=== PATIENT | female | born 1950 | race Caucasian/White ===

== ENCOUNTER → 2016-12-05 | Outpatient (CLI) | payer MEDICARE, MEDICAID ==
[~2016-12-05] MED LIST: ASPI-986 PO; BACITRACIN 50,000 UNITS/VIAL ONE; BUPIVACAINE HCL/PF 0.5% (5MG/ML) 10ML ONE; GENTAMICIN SULF 40MG/ML 2ML VIAL ONE; LIDOCAINE HCL 1% 20ML VIAL (Pyxis) INJ ONE; METO-411 PO; NORMAL SALINE 0.9% 10 ML SYR ONE; NOVALIN N; TRIAMCINOLONE ACETONIDE 40MG/ML 1ML VIAL ONE; VALS320T13 PO; VITA1CAP64 PO
== END | disposition home or self-care (01) ==
LOC: CT 08:47
PROVIDERS: ATTEND Specialist
DX: N28.89 Other specified disorders of kidney and ureter (principal); K80.20 Calculus of gallbladder without cholecystitis without obstruction; K57.90 Diverticulosis of intestine, part unspecified, without perforation or abscess without bleeding
CPT/HCPCS: 74176; A4216; J1580; J3301; J3490

== ENCOUNTER → 2017-01-16 | Outpatient (CLI) | payer MEDICARE, MEDICAID ==
[~2017-01-16] MED LIST changes: -BACITRACIN 50,000 UNITS/VIAL ONE; -BUPIVACAINE HCL/PF 0.5% (5MG/ML) 10ML ONE; -GENTAMICIN SULF 40MG/ML 2ML VIAL ONE; -LIDOCAINE HCL 1% 20ML VIAL (Pyxis) INJ ONE; -NORMAL SALINE 0.9% 10 ML SYR ONE; -TRIAMCINOLONE ACETONIDE 40MG/ML 1ML VIAL ONE
== END | disposition home or self-care (01) ==
LOC: RAD 13:01
PROVIDERS: ATTEND Internal Medicine Nephrology
DX: R06.02 Shortness of breath (principal)
CPT/HCPCS: 71010

== ENCOUNTER 2018-02-25 18:46 | Emergency (ER) | payer MEDICARE, MEDICAID ==
[~2018-02-25] VITALS: Ht 162.6 cm; Wt 70.0 kg
[~2018-02-25 18:46] MED LIST changes: +ALBU18HF2 IH; +ALBU90AE INH; +AMLO10TA80 PO; +ASPI-1159 PO; -ASPI-986 PO; +CHOL200077 PO; +CLOB60CR4 TP; +FOLI0.8T23 MT; +FOLI0.8T23 PO; +INSNPH SUBCUT; +LIDO700A30 TP; -METO-411 PO; +METO100T16 PO; +NEPVIT PO; -NOVALIN N; +PRAV80TA21 PO; +SEVE800T8 PO; -VALS320T13 PO; +VALS320T2 PO; -VITA1CAP64 PO
[2018-02-25] MEDS ORDERED: BACITRACIN ZINC OINT UDPKT TOP ONE (19:45)
[2018-02-25] MEDS ORDERED: IBUPROFEN 800MG TABLET PO ONE (19:45)
[2018-02-25] MEDS ORDERED: HYDROCODONE/ACETAMINOPHEN 5/325MG TABLET PO ONE (19:45)
[2018-02-26 02:05] VITALS: BP 120/62
== END 2018-02-26 02:13 | disposition home or self-care (01) ==
LOC: ER 19:03
DX: S00.81XA Abrasion of other part of head, initial encounter (principal); S50.01XA Contusion of right elbow, initial encounter; E11.22 Type 2 diabetes mellitus with diabetic chronic kidney disease; I12.0 Hypertensive chronic kidney disease with stage 5 chronic kidney disease or end stage renal disease; N18.6 End stage renal disease; E78.00 Pure hypercholesterolemia, unspecified; Z99.2 Dependence on renal dialysis; Z79.82 Long term (current) use of aspirin; W01.0XXA Fall on same level from slipping, tripping and stumbling without subsequent striking against object, initial encounter; Y93.89 Activity, other specified; Y92.018 Other place in single-family (private) house as the place of occurrence of the external cause
CPT/HCPCS: 71045; 99284

== ENCOUNTER → 2018-05-29 | Outpatient (CLI) | payer MEDICARE, MEDICAID | END | disposition home or self-care (01) | LOC: CT 11:40 | PROVIDERS: ATTEND Internal Medicine Nephrology | DX: I67.82 Cerebral ischemia (principal); G31.9 Degenerative disease of nervous system, unspecified; R90.82 White matter disease, unspecified; M25.521 Pain in right elbow | CPT/HCPCS: 73080 ==

== ENCOUNTER 2018-11-30 02:57 | Inpatient (IN) | payer MEDICARE, OTHER ==
[~2018-11-30] VITALS: Ht 147.3 cm; Wt 73.5 kg
[~2018-11-30 02:57] MED LIST changes: -ASPI-1159 PO; +ASPI-1393 PO
[2018-11-30] MEDS ORDERED: NITROGLYCERIN OINT 1GM/INCH UDPKT TD ONE (03:30)
[2018-11-30] MEDS ORDERED: HYDRALAZINE 20MG/ML VIAL IV ONE (03:30)
[2018-11-30 03:52] LABS: BASOPHILS % 2.3 % (0.0-2.0); LYMPHOCYTES % 17.6 % (20.0-50.0); MEAN CORPUSCULAR HEMOGLOBIN 31.3 pg (28.0-32.0); MEAN CORPUSCULAR VOLUME 91.8 fL (81.0-99.0); MEAN PLATELET VOLUME 8.4 fl (7.4-10.4); MONOCYTES % 5.5 % (2.0-8.0); NEUTROPHILS % 67.6 % (40.0-76.0); PLATELET 148 x1000/uL (130-400); RED CELL DISTRIBUTION WIDTH 15.4 % (11.6-14.6)
[2018-11-30 03:59] LABS: CHLORIDE 105 mEq/L (98-107); HEMATOCRIT. 20.2 % (36.0-48.0); HEMOGLOBIN. 6.9 g/dL (12.0-16.0)
[2018-11-30] MEDS ORDERED: ONDANSETRON HCL 4MG/2ML INJ IV PRN (08:30)
[2018-11-30] MEDS ORDERED: HYDROCODONE/ACETAMINOPHEN 5/325MG TABLET PO PRN (08:30)
[2018-11-30] MEDS ORDERED: MORPHINE SULFATE 2 MG/ML CPJ (NOT FOR IM USE) IV PRN (08:30)
[2018-11-30] MEDS ORDERED: MAGNESIUM/ALUMINUM HYDROXIDE/SIMETHICONE 30ML UDC PO PRN (08:30)
[2018-11-30] MEDS ORDERED: CLONIDINE 0.1MG TABLET PO PRN (08:30)
[2018-11-30] MEDS ORDERED: LORAZEPAM 2MG/ML CPJ IV PRN (08:30)
[2018-11-30] MEDS ORDERED: NA PHOS,M-B/NA PHOS,DI-BA ENEMA 118ML PR PRN (08:30)
[2018-11-30] MEDS ORDERED: DOCUSATE SODIUM 100MG CAPSULE PO PRN (08:30)
[2018-11-30] MEDS ORDERED: DIPHENHYDRAMINE 50MG/ML VIAL IV PRN (08:30)
[2018-11-30] MEDS ORDERED: ACETAMINOPHEN 325MG TABLET PO PRN (08:30)
[2018-11-30] MEDS ORDERED: GUAIFENESIN 200MG/10ML SUGAR FREE UDC PO PRN (08:30)
[2018-11-30] MEDS ORDERED: IPRATROPIUM/ALBUTEROL 0.5-3(2.5)MG/3ML NEB INH PRN (08:30)
[2018-11-30 10:45] VITALS: BP 96/52
[2018-11-30 11:01] VITALS: BP 96/52
[2018-11-30] MEDS: ASPIRIN 81MG EC TABLET PO SCH (11:39)
[2018-11-30] MEDS ORDERED: PERMETHRIN 5% CREAM 60GM TOP NR (12:00)
[2018-11-30 12:07] VITALS: BP 102/68
[2018-11-30 16:29] VITALS: BP 155/78
[2018-11-30 16:54] LABS: CREATINE KINASE 63 IU/L (26-192)
[2018-11-30 16:55] LABS: CREATINE KINASE MB FRACTION < 1.0 ng/mL (0.5-3.6)
[2018-11-30] MEDS: IPRATROPIUM/ALBUTEROL 0.5-3(2.5)MG/3ML NEB HHN SCH (19:35)
[2018-11-30 20:17] VITALS: BP 145/55
[2018-11-30 23:43] LABS: CREATINE KINASE 59 IU/L (26-192)
[2018-11-30 23:44] LABS: CREATINE KINASE MB FRACTION < 1.0 ng/mL (0.5-3.6)
[2018-12-01 00:54] VITALS: BP 138/59
[2018-12-01] MEDS: IPRATROPIUM/ALBUTEROL 0.5-3(2.5)MG/3ML NEB HHN SCH ×4 (01:00→20:54)
[2018-12-01 04:00] VITALS: BP 172/64
[2018-12-01 06:51] LABS: CHLORIDE 103 mEq/L (98-107)
[2018-12-01 06:58] LABS: BASOPHILS % 1.7 % (0.0-2.0); EOSINOPHILS % 1.3 % (0.0-5.0); HEMATOCRIT. 25.8 % (36.0-48.0); LDL CHOLESTEROL 35 mg/dL (5-100); LYMPHOCYTES % 10.8 % (20.0-50.0); MEAN CORPUSCULAR VOLUME 89.4 fL (81.0-99.0); MEAN PLATELET VOLUME 8.7 fl (7.4-10.4); MONOCYTES % 5.7 % (2.0-8.0); NEUTROPHILS % 80.5 % (40.0-76.0); PLATELET 140 x1000/uL (130-400); RED BLOOD CELL COUNT 2.89 mill/uL (4.2-5.4); RED CELL DISTRIBUTION WIDTH 15.5 % (11.6-14.6)
[2018-12-01 06:59] LABS: CREATINE KINASE 69 IU/L (26-192); HDL CHOLESTEROL 37 mg/dL (40-59)
[2018-12-01 07:00] LABS: CREATINE KINASE MB FRACTION < 1.0 ng/mL (0.5-3.6); T4 FREE 1.01 ng/dL (0.76-1.46)
[2018-12-01 08:40] VITALS: BP 127/86
[2018-12-01] MEDS: ASPIRIN 81MG EC TABLET PO SCH (09:34)
[2018-12-01 12:19] VITALS: BP 143/57
[2018-12-01 16:00] VITALS: BP 154/49
[2018-12-01] MEDS ORDERED: REN800 PO (18:31)
[2018-12-01 20:27] VITALS: BP 139/55
[2018-12-02 00:36] VITALS: BP 151/71
[2018-12-02] MEDS: IPRATROPIUM/ALBUTEROL 0.5-3(2.5)MG/3ML NEB HHN SCH ×4 (01:46→20:54)
[2018-12-02 04:32] VITALS: BP 149/76
[2018-12-02 05:29] LABS: BASOPHILS % 2.4 % (0.0-2.0); EOSINOPHILS % 8.5 % (0.0-5.0); HEMATOCRIT. 24.4 % (36.0-48.0); HEMOGLOBIN. 8.3 g/dL (12.0-16.0); LYMPHOCYTES % 25.7 % (20.0-50.0); MEAN CORPUSCULAR HEMOGLOBIN 30.5 pg (28.0-32.0); MEAN CORPUSCULAR VOLUME 89.2 fL (81.0-99.0); MEAN PLATELET VOLUME 8.4 fl (7.4-10.4); MONOCYTES % 8.1 % (2.0-8.0); NEUTROPHILS % 55.3 % (40.0-76.0); PLATELET 123 x1000/uL (130-400); RED BLOOD CELL COUNT 2.73 mill/uL (4.2-5.4); RED CELL DISTRIBUTION WIDTH 15.6 % (11.6-14.6)
[2018-12-02 08:00] VITALS: BP 161/58
[2018-12-02] MEDS: AMLODIPINE 10MG TABLET PO SCH (09:00)
[2018-12-02] MEDS: FOLIC ACID/VITAMIN B COMP W-C TABLET PO SCH (10:16)
[2018-12-02] MEDS: ASPIRIN 81MG EC TABLET PO SCH (10:16)
[2018-12-02 12:00] VITALS: BP 157/65
[2018-12-02] MEDS: METOPROLOL TARTRATE 100MG TABLET PO SCH ×2 (12:00→17:00)
[2018-12-02 16:00] VITALS: BP 144/68
[2018-12-02 20:19] VITALS: BP 135/57
[2018-12-02] MEDS ORDERED: ATORVASTATIN CALCIUM 20MG TABLET PO SCH (21:00)
[2018-12-03] VITALS: BP 147/62
[2018-12-03] MEDS: IPRATROPIUM/ALBUTEROL 0.5-3(2.5)MG/3ML NEB HHN SCH ×2 (01:44→08:51)
[2018-12-03 04:00] VITALS: BP 123/51
[2018-12-03 07:15] LABS: BASOPHILS % 3.3 % (0.0-2.0); HEMATOCRIT. 25.9 % (36.0-48.0); LYMPHOCYTES % 18.3 % (20.0-50.0); MEAN CORPUSCULAR HEMOGLOBIN 31.2 pg (28.0-32.0); MEAN CORPUSCULAR VOLUME 89.7 fL (81.0-99.0); MEAN PLATELET VOLUME 8.2 fl (7.4-10.4); MONOCYTES % 7.2 % (2.0-8.0); NEUTROPHILS % 61.2 % (40.0-76.0); PLATELET 158 x1000/uL (130-400); RED BLOOD CELL COUNT 2.89 mill/uL (4.2-5.4); RED CELL DISTRIBUTION WIDTH 15.4 % (11.6-14.6)
[2018-12-03 08:00] VITALS: BP 159/56
[2018-12-03] MEDS: FOLIC ACID/VITAMIN B COMP W-C TABLET PO SCH (08:31)
[2018-12-03] MEDS: ASPIRIN 81MG EC TABLET PO SCH (08:31)
[2018-12-03] MEDS: METOPROLOL TARTRATE 100MG TABLET PO SCH (08:32)
[2018-12-03] MEDS: AMLODIPINE 10MG TABLET PO SCH (08:32)
[2018-12-03 12:30] VITALS: BP 138/52
[2018-12-03 12:52] VITALS: BP 138/52
[2018-12-03] MEDS ORDERED: EPOETIN ALFA 10000UNITS/ML VIAL SUBCUT SCH (21:00)
== END 2018-12-03 15:15 | disposition home or self-care (01) | DRG 291 ==
LOC: ER 02:57 → EDBEDREQTM 05:06 → EDBEDREQ 05:06 → ENRESERV 10:03 → 6WST 10:36
PROVIDERS: ADMIT Internal Medicine; ATTEND Internal Medicine
PROC: 5A1D70Z Performance of Urinary Filtration, Intermittent, Less than 6 Hours Per Day (ICD-10-PCS; 2018-11-30)
PROC: 5A1D70Z Performance of Urinary Filtration, Intermittent, Less than 6 Hours Per Day (ICD-10-PCS; 2018-12-01)
PROC: 30233N1 Transfusion of Nonautologous Red Blood Cells into Peripheral Vein, Percutaneous Approach (ICD-10-PCS; 2018-12-01)
PROC: 5A1D70Z Performance of Urinary Filtration, Intermittent, Less than 6 Hours Per Day (ICD-10-PCS; principal; 2018-12-03)
DX: I13.2 Hypertensive heart and chronic kidney disease with heart failure and with stage 5 chronic kidney disease, or end stage renal disease (principal); J96.01 Acute respiratory failure with hypoxia; N18.6 End stage renal disease; I50.33 Acute on chronic diastolic (congestive) heart failure; E46 Unspecified protein-calorie malnutrition; B86 Scabies; D64.9 Anemia, unspecified; E11.22 Type 2 diabetes mellitus with diabetic chronic kidney disease; E78.5 Hyperlipidemia, unspecified; I27.20 Pulmonary hypertension, unspecified; J42 Unspecified chronic bronchitis; E78.00 Pure hypercholesterolemia, unspecified; I25.10 Atherosclerotic heart disease of native coronary artery without angina pectoris; Z82.49 Family history of ischemic heart disease and other diseases of the circulatory system; Z99.2 Dependence on renal dialysis; Z83.3 Family history of diabetes mellitus; Z79.82 Long term (current) use of aspirin; Z79.899 Other long term (current) drug therapy; Z79.84 Long term (current) use of oral hypoglycemic drugs; Z98.891 History of uterine scar from previous surgery; Z68.33 Body mass index [BMI] 33.0-33.9, adult
CPT/HCPCS: 36415; 71045; 80048; 80061; 82270; 82550; 82553; 82962; 83036; 83880; 84439; 84443; 84484; 85379; 86850; 86900; 86920; 93005; 93306; 93970; 94640; 99291; J0360; J0885; J1200; J7620; P9016

== ENCOUNTER 2019-01-30 23:54 | Inpatient (IN) | payer MEDICARE, OTHER ==
[~2019-01-30] VITALS: Ht 147.3 cm; Wt 69.0 kg
[~2019-01-30 23:54] MED LIST changes: -ALBU18HF2 IH; -ALBU90AE INH; -ASPI-1393 PO; -CHOL200077 PO; -FOLI0.8T23 MT; -FOLI0.8T23 PO; -INSNPH SUBCUT; +REN800 PO; -SEVE800T8 PO
[2019-01-31] VITALS (9 sets, daily range): BP systolic 135–160; BP diastolic 60–80
[2019-01-31] MEDS ORDERED: ONDANSETRON HCL 4MG/2ML INJ IV STA (01:18)
[2019-01-31] MEDS ORDERED: KETOROLAC 30MG/ML VIAL IV STA (01:18)
[2019-01-31 01:44] LABS: BASOPHILS % 1.4 % (0.0-2.0); EOSINOPHILS % 0.2 % (0.0-5.0); HEMOGLOBIN. 9.6 g/dL (12.0-16.0); LYMPHOCYTES % 9.2 % (20.0-50.0); MEAN CORPUSCULAR HEMOGLOBIN 31.6 pg (28.0-32.0); MEAN CORPUSCULAR VOLUME 95.8 fL (81.0-99.0); MEAN PLATELET VOLUME 9.7 fl (7.4-10.4); MONOCYTES % 5.7 % (2.0-8.0); NEUTROPHILS % 83.5 % (40.0-76.0); PLATELET 134 x1000/uL (130-400); RED BLOOD CELL COUNT 3.03 mill/uL (4.2-5.4); RED CELL DISTRIBUTION WIDTH 16.8 % (11.6-14.6)
[2019-01-31 01:47] LABS: CHLORIDE 98 mEq/L (98-107)
[2019-01-31] MEDS ORDERED: FENTANYL CITRATE/PF 50MCG/ML 2ML VIAL IV ONE (03:45)
[2019-01-31 04:00] LABS: PROTHROMBIN TIME 10.6 sec (9.6-11.0)
[2019-01-31 04:41] LABS: CLARITY URINE CLEAR (CLEAR); COLOR URINE YELLOW (YELLOW); KETONES URINE NEGATIVE (NEGATIVE); LEUKOCYTE ESTERASE URINE TRACE (NEGATIVE); NITRITE URINE NEGATIVE (NEGATIVE); OCCULT BLOOD URINE TRACE (NEGATIVE); PH URINE >=9.0 (4.5-8.0); PROTEIN URINE 4+ (NEGATIVE); SPECIFIC GRAVITY URINE 1.013 (1.005-1.030); UROBILINOGEN URINE 0.2 E.U./dL (0.2-1.0)
[2019-01-31] MEDS ORDERED: CEFTRIAXONE 1 G PREMIX 50 ML IV ONE (05:00)
[2019-01-31] MEDS ORDERED: DOCUSATE SODIUM 100MG CAPSULE PO PRN (07:45)
[2019-01-31] MEDS ORDERED: ONDANSETRON HCL 4MG/2ML INJ IV PRN (07:45)
[2019-01-31] MEDS ORDERED: ACETAMINOPHEN 325MG TABLET PO PRN (07:45)
[2019-01-31] MEDS ORDERED: MAGNESIUM/ALUMINUM HYDROXIDE/SIMETHICONE 30ML UDC PO PRN (07:45)
[2019-01-31] MEDS ORDERED: LORAZEPAM 0.5MG TABLET PO PRN (07:45)
[2019-01-31] MEDS ORDERED: TRAMADOL 50MG TABLET PO PRN (07:45)
[2019-01-31] MEDS ORDERED: IPRATROPIUM/ALBUTEROL 0.5-3(2.5)MG/3ML NEB NEB PRN (07:45)
[2019-01-31] MEDS ORDERED: GUAIFENESIN 200MG/10ML SUGAR FREE UDC PO PRN (07:45)
[2019-01-31] MEDS ORDERED: NITROGLYCERIN 0.4MG TABLET SL SL PRN (07:45)
[2019-01-31] MEDS: SEVELAMER CARBONATE 800 MG TABLET PO SCH ×3 (09:41→17:27)
[2019-01-31] MEDS: FAMOTIDINE 20MG TABLET PO SCH (09:41)
[2019-01-31] MEDS: METOPROLOL TARTRATE 25MG TABLET PO SCH ×2 (09:41→21:32)
[2019-01-31] MEDS: FOLIC ACID/VITAMIN B COMP W-C TABLET PO SCH (09:41)
[2019-01-31] MEDS ORDERED: DESMOPRESSIN ACETATE 4MCG/ML AMP IV ONE (10:30)
[2019-01-31] MEDS ORDERED: DESMOPRESSIN ACETATE IVPB 20 MCG in SODIUM CHLORIDE 0.9% 50 ML IV NR (11:30)
[2019-01-31 12:38] LABS: HEMOGLOBIN 8.3 g/dL (12.0-16.0)
[2019-01-31] MEDS ORDERED: CEFTRIAXONE 1 G PREMIX 50 ML IV SCH (16:00)
[2019-01-31] MEDS: MORPHINE SULFATE 2 MG/ML CPJ (NOT FOR IM USE) IV PRN (16:55)
[2019-01-31 19:19] LABS: HEMATOCRIT 22.4 % (36.0-48.0); HEMOGLOBIN 7.4 g/dL (12.0-16.0)
[2019-02-01] VITALS (20 sets, daily range): BP systolic 133–194; BP diastolic 54–90
[2019-02-01] MEDS: CEFTRIAXONE 1 G PREMIX 50 ML IV SCH (06:25)
[2019-02-01] MEDS: CLONIDINE 0.1MG TABLET PO PRN (06:25)
[2019-02-01 08:36] LABS: HEMATOCRIT 24.6 % (36.0-48.0); HEMOGLOBIN 8.2 g/dL (12.0-16.0)
[2019-02-01] MEDS: SEVELAMER CARBONATE 800 MG TABLET PO SCH ×3 (08:50→18:24)
[2019-02-01] MEDS: METOPROLOL TARTRATE 25MG TABLET PO SCH ×2 (09:11→22:12)
[2019-02-01] MEDS: FOLIC ACID/VITAMIN B COMP W-C TABLET PO SCH (09:11)
[2019-02-01] MEDS: FAMOTIDINE 20MG TABLET PO SCH (09:11)
[2019-02-01 16:02] LABS: HEMATOCRIT 26.5 % (36.0-48.0)
[2019-02-01 18:09] LABS: HEMATOCRIT 23.7 % (36.0-48.0); HEMOGLOBIN 7.8 g/dL (12.0-16.0)
[2019-02-01] MEDS: MORPHINE SULFATE 2 MG/ML CPJ (NOT FOR IM USE) IV PRN (23:03)
[2019-02-02] VITALS (10 sets, daily range): BP systolic 130–180; BP diastolic 60–98
[2019-02-02 02:00] LABS: HEMATOCRIT 27.1 % (36.0-48.0); HEMOGLOBIN 9.1 g/dL (12.0-16.0)
[2019-02-02] MEDS: CEFTRIAXONE 1 G PREMIX 50 ML IV SCH (06:01)
[2019-02-02 06:04] LABS: BASOPHILS % 1.3 % (0.0-2.0); EOSINOPHILS % 6.5 % (0.0-5.0); HEMATOCRIT. 26.8 % (36.0-48.0); HEMOGLOBIN. 9.1 g/dL (12.0-16.0); LYMPHOCYTES % 23.3 % (20.0-50.0); MEAN CORPUSCULAR VOLUME 91.1 fL (81.0-99.0); MEAN PLATELET VOLUME 9.1 fl (7.4-10.4); MONOCYTES % 5.8 % (2.0-8.0); NEUTROPHILS % 63.1 % (40.0-76.0); PLATELET 103 x1000/uL (130-400); RED BLOOD CELL COUNT 2.94 mill/uL (4.2-5.4)
[2019-02-02] MEDS: FAMOTIDINE 20MG TABLET PO SCH (10:09)
[2019-02-02] MEDS: SEVELAMER CARBONATE 800 MG TABLET PO SCH ×3 (10:09→18:34)
[2019-02-02] MEDS: FOLIC ACID/VITAMIN B COMP W-C TABLET PO SCH (10:09)
[2019-02-02] MEDS: METOPROLOL TARTRATE 25MG TABLET PO SCH ×2 (10:12→21:07)
[2019-02-02] MEDS: CLONIDINE 0.1MG TABLET PO PRN (11:20)
[2019-02-02] MEDS: ZOLPIDEM TARTRATE 5MG TABLET PO PRN (21:07)
[2019-02-03] VITALS (13 sets, daily range): BP systolic 122–183; BP diastolic 40–78
[2019-02-03] MEDS: CEFTRIAXONE 1 G PREMIX 50 ML IV SCH (05:21)
[2019-02-03 07:22] LABS: BASOPHILS % 1.8 % (0.0-2.0); EOSINOPHILS % 3.9 % (0.0-5.0); HEMATOCRIT. 29.8 % (36.0-48.0); HEMOGLOBIN. 10.1 g/dL (12.0-16.0); MEAN CORPUSCULAR VOLUME 91.6 fL (81.0-99.0); MEAN PLATELET VOLUME 9.3 fl (7.4-10.4); MONOCYTES % 6.4 % (2.0-8.0); NEUTROPHILS % 66.9 % (40.0-76.0); PLATELET 144 x1000/uL (130-400); RED BLOOD CELL COUNT 3.25 mill/uL (4.2-5.4); RED CELL DISTRIBUTION WIDTH 17.5 % (11.6-14.6)
[2019-02-03] MEDS: FAMOTIDINE 20MG TABLET PO SCH (09:30)
[2019-02-03] MEDS: FOLIC ACID/VITAMIN B COMP W-C TABLET PO SCH (09:30)
[2019-02-03] MEDS: METOPROLOL TARTRATE 25MG TABLET PO SCH (09:33)
[2019-02-03] MEDS: SEVELAMER CARBONATE 800 MG TABLET PO SCH ×3 (11:04→18:12)
[2019-02-03] MEDS: CLONIDINE 0.1MG TABLET PO PRN (11:52)
[2019-02-03] MEDS ORDERED: DILTIAZEM HCL 5MG/ML 5ML VIAL IV NR (17:45)
[2019-02-03] MEDS: DILTIAZEM HCL 60MG TABLET PO SCH (18:11)
[2019-02-03 18:47] LABS: HEMATOCRIT 30.4 % (36.0-48.0); HEMOGLOBIN 10.2 g/dL (12.0-16.0)
[2019-02-03] MEDS: ZOLPIDEM TARTRATE 5MG TABLET PO PRN (20:59)
[2019-02-03] MEDS ORDERED: METOPROLOL TARTRATE 25MG TABLET PO SCH (21:00)
[2019-02-04] VITALS (12 sets, daily range): BP systolic 122–174; BP diastolic 41–78
[2019-02-04] MEDS: CEFTRIAXONE 1 G PREMIX 50 ML IV SCH (05:16)
[2019-02-04] MEDS: DILTIAZEM HCL 60MG TABLET PO SCH ×4 (05:45→18:00)
[2019-02-04 07:19] LABS: BASOPHILS % 1.9 % (0.0-2.0); EOSINOPHILS % 5.9 % (0.0-5.0); HEMATOCRIT. 27.7 % (36.0-48.0); HEMOGLOBIN. 9.5 g/dL (12.0-16.0); LYMPHOCYTES % 19.3 % (20.0-50.0); MEAN CORPUSCULAR HEMOGLOBIN 31.5 pg (28.0-32.0); MEAN CORPUSCULAR VOLUME 92.1 fL (81.0-99.0); MEAN PLATELET VOLUME 9.5 fl (7.4-10.4); MONOCYTES % 8.3 % (2.0-8.0); NEUTROPHILS % 64.6 % (40.0-76.0); PLATELET 149 x1000/uL (130-400); RED BLOOD CELL COUNT 3.01 mill/uL (4.2-5.4); RED CELL DISTRIBUTION WIDTH 17.4 % (11.6-14.6)
[2019-02-04] MEDS: SEVELAMER CARBONATE 800 MG TABLET PO SCH ×3 (08:49→18:13)
[2019-02-04] MEDS: FOLIC ACID/VITAMIN B COMP W-C TABLET PO SCH (08:49)
[2019-02-04] MEDS: FAMOTIDINE 20MG TABLET PO SCH (08:49)
[2019-02-04] MEDS ORDERED: METOPROLOL TARTRATE 25MG TABLET PO SCH (09:00)
[2019-02-04] MEDS ORDERED: METOPROLOL TARTRATE 50MG TABLET PO SCH (21:00)
== END 2019-02-04 19:15 | disposition home or self-care (01) | DRG 871 ==
LOC: ER 23:54 → 5EST 01-31 04:46 → EDBEDREQ 01-31 04:51 → ENRESERV 01-31 04:58 → SUPCPDRO 01-31 07:35
PROVIDERS: ADMIT Internal Medicine; ATTEND Internal Medicine
PROC: 30233N1 Transfusion of Nonautologous Red Blood Cells into Peripheral Vein, Percutaneous Approach (ICD-10-PCS; principal; 2019-02-01)
PROC: 5A1D70Z Performance of Urinary Filtration, Intermittent, Less than 6 Hours Per Day (ICD-10-PCS; 2019-02-01)
PROC: 5A1D70Z Performance of Urinary Filtration, Intermittent, Less than 6 Hours Per Day (ICD-10-PCS; 2019-02-03)
DX: A41.9 Sepsis, unspecified organism (principal); N18.6 End stage renal disease; N39.0 Urinary tract infection, site not specified; D62 Acute posthemorrhagic anemia; I12.0 Hypertensive chronic kidney disease with stage 5 chronic kidney disease or end stage renal disease; I47.1 Supraventricular tachycardia; E11.22 Type 2 diabetes mellitus with diabetic chronic kidney disease; E83.51 Hypocalcemia; E78.00 Pure hypercholesterolemia, unspecified; E78.5 Hyperlipidemia, unspecified; E83.52 Hypercalcemia; T23.171A Burn of first degree of right wrist, initial encounter; X08.8XXA Exposure to other specified smoke, fire and flames, initial encounter; Y93.89 Activity, other specified; Y92.89 Other specified places as the place of occurrence of the external cause; Z99.2 Dependence on renal dialysis; Z88.8 Allergy status to other drugs, medicaments and biological substances; Z79.899 Other long term (current) drug therapy; Y99.8 Other external cause status; N28.89 Other specified disorders of kidney and ureter
CPT/HCPCS: 36415; 71045; 74176; 76770; 80048; 80061; 81003; 83036; 83605; 84134; 84484; 85014; 85018; 86850; 86900; 86920; 93005; 93970; 96365; 96366; 96375; 97116; 97162; 97166; 99285; J0696; J1885; J2270; J2405; J2597; J3490; P9016